=== PATIENT | male | born 1970 | race Caucasian/White ===

== ENCOUNTER 2018-05-28 12:57 | Emergency (ER) | payer OTHER ==
[~2018-05-28] VITALS: Ht 190.5 cm; Wt 131.5 kg
[2018-05-28 12:58] VITALS: BP 132/78
[2018-05-28] MEDS ORDERED: LUBRICANT EYE3.5 G2 OPHTHALMIC (13:16)
[2018-05-28] MEDS ORDERED: PREDNISONE 20 M20 M1 PO (13:16)
[2018-05-28] MEDS ORDERED: VALACYCLOVIR500 MG PO (13:16)
== END 2018-05-28 13:45 | disposition home or self-care (01) ==
LOC: ER 12:57
DX: G51.0 Bell's palsy (principal)